=== PATIENT | female | born 2000 | race Caucasian/White ===

== ENCOUNTER 2019-07-22 21:55 | Emergency (ER) | payer OTHER ==
[~2019-07-22] VITALS: Ht 160 cm; Wt 58.1 kg
[2019-07-22 22:28] VITALS: BP_SYST 117
--- NOTE | 2019-07-22 22:32 | NUR ---
Pt placed to ER waiting room in stable condition. Urine specimen cup provided.
--- NOTE | 2019-07-22 22:46 | NUR ---
Pt placed to ER bed 02. Pt report given to JAIME Fisher.
--- NOTE | 2019-07-22 22:50 | NUR ---
Dr. Mitchell at bedside.
--- NOTE | 2019-07-22 22:55 | NUR ---
Pt BIB family to ED C/O intermittent right breast/chest pain for two weeks. The pain is rated 8/10 intensity and described as sharp. The patient states she had a cyst 2 years ago on her right breast 2 years ago and the pain is unchanged. She is uncertain if the pain is coming from the cyst or her chest. She denies getting a mammogram No other injuries and or complaints noted VSS no s/s of acute distress Resting on [employer] rails
--- NOTE | 2019-07-22 23:10 | NUR ---
Pt taken to Radiology in stable condition
--- NOTE | 2019-07-22 23:14 | NUR ---
Pt back from Radiology, well tolerated
[2019-07-22 23:52] LABS: BASOPHILS # (AUTO) 0.2 K/uL (0.0-0.2); BASOPHILS % (AUTO) 2.6 % (0.0-2.0); EOSINOPHILS # (AUTO) 0.3 K/uL (0.0-0.4); EOSINOPHILS % (AUTO) 3.5 % (0.0-4.0); HEMOGLOBIN 11.5 g/dL (12.0-16.0); LYMPHOCYTES # (AUTO) 2.7 K/uL (1.0-5.5); MEAN CORPUSCULAR HEMOGLOBIN 28 pg (27-31); MEAN CORPUSCULAR HGB CONC 34 % (32-36); MEAN CORPUSCULAR VOLUME 83 fL (79.0-98.0); MONOCYTES # (AUTO) 0.5 K/uL (0.0-1.0); MONOCYTES % (AUTO) 6.4 % (1.7-9.3); NEUTROPHILS # (AUTO) 4.5 K/uL (1.8-7.7); NEUTROPHILS % (AUTO) 54.5 % (40.0-70.0); PLATELET COUNT (AUTO) 240 K/uL (130-430); RED BLOOD CELL COUNT(AUTO) 4.09 MIL/uL (4.2-6.2); RED CELL DISTRIBUTION WIDTH 16.3 % (9.0-15.0); WHITE BLOOD COUNT (AUTO) 8.3 K/uL (4.5-11.0)
[2019-07-23 00:02] LABS: CALCIUM 8.5 mg/dL (8.4-11.0); CREATININE 0.63 mg/dL (0.55-1.30); POTASSIUM 3.7 mmol/L (3.5-5.1)
[2019-07-23 00:08] LABS: ALBUMIN 3.8 g/dL (3.4-4.8); TOTAL BILIRUBIN 0.4 mg/dL (0.0-1.0)
--- NOTE | 2019-07-23 00:18 | NUR ---
VSS no s/s of acute distress Resting on gurney rails up
--- NOTE | 2019-07-23 01:00 | NUR ---
Dr. Mitchell bedside to update Pt
[2019-07-23 02:19] VITALS: BP_SYST 117
--- NOTE | 2019-07-23 02:19 | NUR ---
Patient given written and verbal discharge instructions and verbalizes understanding. ER MD discussed with patient the results and treatment provided. Patient in stable condition. ID arm band removed. Patient educated on pain management and to follow up with PMD. Pain Scale 0/10 Opportunity for questions provided and answered.
== END 2019-07-23 02:19 | disposition home or self-care (01) ==
LOC: SED 21:55
DX: R07.89 Other chest pain (principal)
CPT/HCPCS: 36415; 71045; 80053; 81025; 84484; 85025; 85379; 93005; 99284